=== PATIENT | female | born 1945 | race Caucasian/White ===

== ENCOUNTER 2016-07-16 15:29 | Emergency (ER) | payer MEDICARE, BC ==
--- NOTE | ~2016-07-16 | EKG ---
PATIENT: JEWELL LI UNIT #: [id number] Ventricular Rate: 101 BPM Atrial Rate: 101 BPM P-R Interval: 132 ms QRS Duration: 120 ms Q-T Interval: 382 ms QTC Calculation(Bezet): 495 ms P Tye: 50 degrees Calculated R Tye: -41 degrees Calculated T Tye: 26 degrees Diagnosis Line: Sinus tachycardia Diagnosis Line: Left axis deviation Diagnosis Line: Right bundle branch block Diagnosis Line: Abnormal ECG Diagnosis Line: No previous ECGs available Diagnosis Line: Confirmed by DERRICK BEACH MD ([id number]) on Diagnosis Line: 07/16/2016 4:41:20 PM INTERPRETING MD: YONG ST
--- NOTE | ~2016-07-16 | CT4 ---
[facility] A Service of [facility] RADIOLOGY TEXT RESULTS PATIENT: JEWELL LI LOCATION: [facility] : 45 UNIT #: [id number] AGE: [address]: Elysia Che MD SEX: F ORDER DR: [id number] [facility] [address] [place], [place] [address] [id number] E MR#: [id number] Acc #: [id number] NAME: JEWELL LI. : 1945 SEX: F STUDY DATE/TIME: 07/16/2016 18:13 UNIT: [facility] ROOM: STUDY DESCRIPTION: CT Abd and Pelv Wo Cont Attending Physician: Elysia Che M.D. Ordering Physician: Elysia Che M.D. Primary Care Physician: Katheryn Virgen M.D. MEDICAL IMAGING REPORT This report is preliminary unless electronic signature is present EXAM CT of the abdomen and pelvis without IV contrast. COMPARISON CT chest without IV contrast on the same date. INDICATION 71-year-old female with generalized abdominal pain today. Low hemoglobin. TECHNIQUE This CT exam was performed with one or more of the following radiation dose reduction techniques: automatic exposure control, adjustment of mA and/or kV according to patient size, and iterative reconstruction. FINDINGS Axial CT imaging of the abdomen and pelvis was performed without IV contrast. Lack of IV contrast limits evaluation of adenopathy, vasculature and viscera. The subcutaneous fat overlying the anterior right lower abdominal wall there is a 9 mm nodular density, possibly an injection granuloma. They are prominent bilateral inguinal lymph nodes, likely reactive. These measure up to a centimeter short axis on the right. Detailed evaluation of the abdomen and pelvis is limited by patient motion. There is a very small umbilical hernia which contains a very short segment of bowel, without evidence of associated mechanical obstruction or inflammatory change. There is a large stool burden from the mid transverse colon to the rectum. Findings may reflect rectal fecal impaction. There has been prior hysterectomy. There are bilateral percutaneous nephrostomies, as well as bilateral nephroureteral stents. A right percutaneous nephrostomy terminates in the renal pelvis, and the right upper ureteral stent terminates in the right superior pole radha. Both the left nephroureteral stent and left nephrostomy terminate in the left renal pelvis, and there is moderate to severe left hydronephrosis of STS. [facility] A Service of [facility] RADIOLOGY TEXT RESULTS PATIENT: JEWELL LI [id number] 45 UNIT #: [id number] AGE: [address]: Elysia Che MD SEX: F ORDER DR: uncertain acuity given lack of comparisons. There is decompression of the left ureter just below the left ureteropelvic junction. There is no right hydronephrosis or hydroureter. The urinary bladder is unremarkable. No definite adnexal masses are seen. No free fluid in the abdomen or pelvis. No pneumoperitoneum. There is a chronic-appearing nonunited fracture of the left inferior pubic ramus, not well evaluated on the current exam. 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 Disc height loss at L5-S1 with posterior disc osteophyte complex. Catheter terminates in the right atrium. There are also sclerotic lesions seen within the posterior ribs bilaterally. There may be trace bilateral pleural effusions. There is prominent pleural fat bilaterally posteriorly. Dependent atelectasis in both lower lobes. Abdominal aorta is normal course and caliber with diffuse calcification involving the branches of the abdominal aorta including the right renal artery, superior mesenteric artery and celiac artery. Gallbladder is grossly unremarkable. Spleen, pancreas and adrenal glands are grossly unremarkable on this noncontrast exam. There is some mild diffuse haziness of the mesentery and retroperitoneum, nonspecific finding. IMPRESSION 1. Extensive sclerotic lesions seen throughout the axial skeleton including in the lower posterior ribs. There is a healing fracture of the left inferior pubic ramus which is also sclerotic suggesting a pathologic fracture. Correlation with patient's history of possible malignancy recommended. There are small bilateral pleural effusions with compressive atelectasis in both lower lobes. 2. Fat-containing umbilical hernia and this hernia also contains a very small, short segment loop of bowel without evidence of obstruction or inflammatory change. 3. Bilateral percutaneous nephrostomies and bilateral nephroureteral stents. There is no right-sided hydronephrosis or hydroureter, but on the left there is moderate hydronephrosis of uncertain acuity. Both the left nephrostomy and nephroureteral stent terminate in the renal pelvis and not within the radha of the left kidney and there is decompression at the level of the left ureteropelvic junction. No left hydroureter. 4. Catheter tip terminating in the right atrium. 5. Diffuse arterial calcifications involving the abdominal aorta and its branch vessels as described in the body of the report. 6. Diffuse haziness of the mesentery and retroperitoneum, possibly reflecting anasarca. [facility] A Service of [facility] RADIOLOGY TEXT RESULTS PATIENT: JEWELL LI LOCATION: [facility] : 45 UNIT #: [id number] AGE: [address]: Elysia Che MD SEX: F ORDER DR: 7. Dense stool seen throughout the left colon and within the rectum. This may reflect rectal fecal impaction. 8. Bilateral inguinal lymph nodes measure up to a centimeter on the right. While these may be reactive, metastatic disease cannot be excluded. There is a subcutaneous nodule in the fat overlying the right lower anterior abdominal wall measuring up to 9 mm, possibly reflecting an injection granuloma. Dictated by... Fernando Adame M.D. THIS IS AN ELECTRONICALLY VERIFIED REPORT Fernando Adame M.D. at 07/22/2016 5:26 PM Jenni TD: 07/16/2016 22:07 JOB #: [id number] MEDICAL IMAGING REPORT Page 1 of 1 COPY
--- NOTE | ~2016-07-16 | CR72 ---
[facility] A Service of [facility] RADIOLOGY TEXT RESULTS PATIENT: JEWELL LI LOCATION: [facility] : 45 UNIT #: [id number] AGE: [address]: Elysia Che MD SEX: F ORDER DR: [id number] [facility] [address] [place], [place] [address] [id number] E MR#: [id number] Acc #: [id number] NAME: JEWELL LI. : 1945 SEX: F STUDY DATE/TIME: 07/16/2016 15:00 UNIT: [facility] ROOM: STUDY DESCRIPTION: CR Chest Single View Portable Attending Physician: Elysia Che M.D. Ordering Physician: Elysia Che M.D. Primary Care Physician: Katheryn Virgen M.D. MEDICAL IMAGING REPORT This report is preliminary unless electronic signature is present EXAM Portable chest. HISTORY Lethargy, low hemoglobin, shortness of air beginning today. COMPARISON There is no comparison. FINDINGS A portable view of the chest was obtained. The heart size and vascularity are normal. There is decreased density in the right lateral chest, where there is a vague area of density measuring about 3.5 cm in diameter. There is a Port-A-Cath present with its tip in the right atrium. There are seen to be bone metastases with sclerotic areas in the left humerus and at least 1 left rib. IMPRESSION 1. There is a faint 3.5-cm mass suggested in the right upper lobe. It appears the patient is going to have a CT chest in the near future, and that will be useful for correlation and further follow-up and further evaluation. 2. Sclerotic lesion, proximal left humerus, and at least 1 or 2 left ribs suggesting metastatic disease. 3. No infiltrates are suggested. Dictated by... Chetan Chin M.D. THIS IS AN ELECTRONICALLY VERIFIED REPORT [facility] A Service of [facility] RADIOLOGY TEXT RESULTS PATIENT: JEWELL LI LOCATION: [facility] : 45 UNIT #: [id number] AGE: [address]: Elysia Che MD SEX: F ORDER DR: Chetan Chin M.D. at 07/17/2016 11:36 AM IVET/juan c TD: 07/16/2016 16:23 JOB #: [id number] MEDICAL IMAGING REPORT Page 1 of 1 COPY
--- NOTE | ~2016-07-16 | CT71 ---
[facility] A Service [facility][1] RADIOLOGY TEXT RESULTS PATIENT: JEWELL LI LOCATION: [facility] : 45 UNIT #: [id number] AGE: [address]: Elysia Che MD SEX: F ORDER DR: [id number] [place] [id number] [facility] [place], [place] [address] [id number] E MR#: [id number] [facility] #: [id number] NAME: JEWELL LI : 1945 SEX: F STUDY DATE/TIME: 07/16/2016 18:00 UNIT: [facility] ROOM: STUDY DESCRIPTION: CT Head Wo Contrast Attending Physician: Elysia Che M.D. Ordering Physician: Elysia Che M.D. Primary Care Physician: Katheryn Virgen M.D. MEDICAL IMAGING REPORT This report is preliminary unless electronic signature is present EXAM CT head without contrast, 07/16/2016 HISTORY 71-year-old female with headache, beginning today. COMPARISON None. TECHNIQUE Routine unenhanced axial images performed through the brain. This CT exam was performed with one or more of the following radiation dose reduction techniques: Automatic exposure control, adjustment of mA and/or kV according to patient size, and iterative reconstruction. FINDINGS Examination limited by patient motion. Allowing for this, no hemorrhage, acute infarction, mass lesion, or abnormal extraaxial fluid collection. No midline shift or focal mass effect. Ventricular system normal in size and configuration. Mild generalized atrophy. Mild chronic small vessel disease in the supratentorial white matter. There are multiple sclerotic lesions noted throughout the calvarium suggestive of osseous metastatic disease. Correlation for any known history of primary malignancy recommended. Visualized paranasal sinuses and mastoid air cells are clear. IMPRESSION 1. Motion limited exam. 2. No gross acute intracranial abnormality. 3. Age-related atrophy and mild chronic small vessel disease. 4. Multiple sclerotic lesions noted throughout the calvarium, most suggestive of osseous metastatic disease. Correlation for any known primary malignancy recommended. [facility] A Service [facility][1] RADIOLOGY TEXT RESULTS PATIENT: JEWELL LI LOCATION: [facility] : 45 UNIT #: [id number] AGE: [address]: Elysia Che MD SEX: F ORDER DR: Dictated by... Humberto Queen M.D. THIS IS AN ELECTRONICALLY VERIFIED REPORT Humberto Queen M.D. at 07/17/2016 8:10 AM GABRIELA/shari TD: 07/16/2016 21:30 JOB #: [id number] MEDICAL IMAGING REPORT Page 1 of 1 COPY
--- NOTE | ~2016-07-16 | CT57 ---
[facility] A Service of [facility] RADIOLOGY TEXT RESULTS PATIENT: JEWELL LI LOCATION: [facility] : 45 UNIT #: [id number] AGE: [address]: Elysia Che MD SEX: F ORDER DR: [id number] [facility] [address] [place], [place] [address] [id number] E MR#: [id number] Acc #: [id number] NAME: JEWELL LI. : 1945 SEX: F STUDY DATE/TIME: 07/16/2016 18:13 UNIT: [facility] ROOM: STUDY DESCRIPTION: CT Chest Wo Cont Attending Physician: Elysia Che M.D. Ordering Physician: Elysia Che M.D. Primary Care Physician: Katheryn Virgen M.D. MEDICAL IMAGING REPORT This report is preliminary unless electronic signature is present EXAM CT chest without contrast 07/16/2016 HISTORY 71-year-old female with chest pain beginning today. COMPARISON STUDIES None. TECHNIQUE Helical scan performed through the chest without IV contrast. Coronal and sagittal reformatted images. This CT exam was performed with one or more of the following radiation dose reduction techniques: automatic exposure control, adjustment of mA and/or kV according to patient size, and iterative reconstruction. FINDINGS Thoracic aorta normal in course and caliber with scattered atherosclerotic calcification. Left-sided Port-A-Cath. Heart size is normal. No pericardial effusion. There are surgical clips noted in the left axillary region. Small bilateral pleural effusions and bibasilar atelectasis/infiltrate. There is some suspected left apical scarring, allowing for motion. No pneumothorax. Incidental scanning through the upper abdomen is grossly unremarkable. There are multiple sclerotic lesions noted throughout the osseous structures, most consistent with osseous metastatic disease. IMPRESSION [facility] A Service [facility] RADIOLOGY TEXT RESULTS PATIENT: JEWELL LI LOCATION: [facility] : 45 UNIT #: [id number] AGE: [address]: Elysia Che MD SEX: F ORDER DR: 1. Multiple sclerotic lesions noted throughout the visualized osseous structures, most consistent with osseous metastatic disease. Correlation with history of known primary malignancy. 2. Small bilateral pleural effusions and bibasilar atelectasis/infiltrate. Dictated by... Humberto Queen M.D. THIS IS AN ELECTRONICALLY VERIFIED REPORT Humberto Queen M.D. at 07/17/2016 8:11 AM GABRIELA/pcl TD: 07/16/2016 21:53 JOB #: [id number] MEDICAL IMAGING REPORT Page 1 of 1 COPY
[2016-07-16 14:58] LABS: POC - CKMB 1.3 ng/mL (0.0-7.9); POC - TROPONIN 0.06 ng/mL (<=0.05)
[2016-07-16 15:05] LABS: BASOPHIL% 0.2 % (0-2.5); EOSINOPHIL% 0.3 % (0.0-7.0); HEMATOCRIT 27.6 % (35.0-45.0); HEMOGLOBIN 8.7 gm/dL (12.0-16.0); LYMPHOCYTE# 0.5 X10e3 (1.0-3.5); LYMPHOCYTE% 3.6 % (17.0-45.0); MEAN CELL VOLUME 95.1 FL (83-96); MEAN CORPUSCULAR HEMOGLOBIN 29.8 PG (28-34); MEAN CORPUSCULAR HGB CONC 31.3 g/dL (30-36); MEAN PLATELET VOLUME 7.9 FL (6.5-11.5); MONOCYTE# 0.2 X10e3 (0-1.0); MONOCYTE% 1.6 % (3.0-12.0); NEUTROPHIL# 12.8 X10e3 (1.5-7.1); NEUTROPHIL% 94.3 % (40-75); PLATELET COUNT 193 X10e3 (140-420); RED BLOOD COUNT 2.91 X10e (3.90-5.30); RED CELL DISTRIBUTION WIDTH 17.2 % (11.0-15.5); WHITE BLOOD COUNT 13.6 X10e3 (4.0-10.5)
[2016-07-16 15:10] LABS: DIFF IND NO
[2016-07-16 15:18] LABS: URINE SOURCE CLEAN CATCH
[2016-07-16 15:31] LABS: URINE APPEARANCE TURBID; URINE BILIRUBIN NEG (NEG); URINE BLOOD 3+ (NEG); URINE COLOR YELLOW; URINE GLUCOSE NEG (NEG); URINE KETONE TRACE (NEG); URINE LEUKOCYTE ESTERASE 3+ (NEG); URINE NITRATE NEG (NEG); URINE PROTEIN 2+ (NEG); URINE SPECIFIC GRAVITY 1.013 (1.003-1.035)
[2016-07-16 15:33] LABS: CULTURE INDICATED? YES; URBCS1 AUWI INNUM /[HPF] (0-2); URINE BACTERIA AUWI 1+ (NEGATIVE); URINE SQUAMOUS EPITHELIAL CELL MOD /[HPF]; UWBCS1 AUWI INNUM (0-5)
[2016-07-16 15:37] LABS: URINE APPEARANCE TURBID; URINE COLOR YELLOW
[2016-07-16 15:41] LABS: UWBCS1 AUWI 50-100 (0-5)
[2016-07-16 15:42] LABS: CULTURE INDICATED? YES; URINE BACTERIA AUWI 1+ (NEGATIVE)
[2016-07-16 15:43] LABS: URINE YEAST PRESENT
[2016-07-16 15:47] LABS: URINE SOURCE CLEAN CATCH
[2016-07-16 16:04] LABS: PARTIAL THROMBOPLASTIN TIME 25.5 SECONDS (23.5-31.3); PROTHROMBIN TIME (PATIENT) 10.8 SECONDS (9.6-11.5)
[2016-07-16 16:05] LABS: ALBUMIN SERUM 2.4 g/dL (3.5-5.0); BILIRUBIN, DIRECT 0.1 mg/dL (0.0-0.2); BILIRUBIN,INDIRECT 0.3 mg/dL (0.0-0.9); BILIRUBIN,TOTAL 0.4 mg/dL (0.2-2.0); BUN/CREATININE RATIO 11.42; CALCIUM SERUM 8.2 mg/dL (8.4-10.2); CREATININE SERUM 2.1 mg/dL (0.6-1.4); GLOM FILT RATE Estimated 23.1 mL/min (>60); POTASSIUM 4.6 mmol/L (3.5-5.1); PROTEIN TOTAL SERUM 5.4 g/dL (6.0-8.3)
[2016-07-16 16:08] LABS: URINE YEAST PRESENT
[2016-07-16 18:01] LABS: POC - CKMB <1.0 ng/mL (0.0-7.9); POC - TROPONIN <0.05 ng/mL (<=0.05)
== END 2016-07-16 21:30 | disposition short-term general hospital (02) ==
LOC: CED 15:29
PROVIDERS: Emergency Medicine
DX: C50.919 Malignant neoplasm of unspecified site of unspecified female breast (principal); C79.51 Secondary malignant neoplasm of bone; J44.9 Chronic obstructive pulmonary disease, unspecified; I25.2 Old myocardial infarction; E11.9 Type 2 diabetes mellitus without complications; N17.9 Acute kidney failure, unspecified; D53.9 Nutritional anemia, unspecified
CPT/HCPCS: 36415; 70450; 71010; 71250; 74176; 80048; 80076; 81003; 82553; 83605; 83690; 83880; 84484; 85025; 85610; 85730; 86850; 86900; 86901; 87040; 87077; 87086; 87088; 87186; 93005; 99285